=== PATIENT | male | born 1935 | race Two or more races ===

== ENCOUNTER 2019-02-21 17:36 | Inpatient (IN) | payer OTHER ==
[~2019-02-21] VITALS: Ht 180.3 cm; Wt 75.3 kg
--- NOTE | 2019-02-21 17:41 | Emergency Room Report ---
History of Present Illness General Chief Complaint: Abnormal Labs Source: Patient, EMS Present Illness HPI Patient is an 83-year-old male brought in by EMS after acute onset of altered mental status. Patient was noted to have been in a hot apartment. He was found to have low blood sugar by paramedics. Patient states he has type 2 diabetes but cannot recall what his medications are. He states that this is not metformin. He denies any current complaints.Patient denies any recent illness. Allergies: Coded Allergies: No Known Allergies (Unverified , 02/21/19) Patient History Past Medical History: see triage record Reviewed Nursing Documentation: PMH: Agreed; PSxH: Agreed Nursing Documentation-PMH Hx Hypertension: Yes Hx Diabetes: Yes Review of Systems All Other Systems: negative except mentioned in HPI Physical Exam Vital Signs Date Time Temp Pulse Resp B/P (MAP) Pulse Ox O2 Delivery O2 Flow Rate FiO2 02/21/19 17:37 98.4 72 19 172/84 (113) 99 Sp02 EP Interpretation: reviewed, normal General Appearance: normal inspection, well appearing, no apparent distress, alert, GCS 15 Head: atraumatic ENT: normal ENT inspection, hearing grossly normal, normal voice Neck: normal inspection, full range of motion, supple, no bony tend Respiratory: normal inspection, lungs clear, normal breath sounds, no respiratory distress, no retraction, no wheezing Cardiovascular #1: regular rate, rhythm, no edema, other - palpable thrill to left upper extremity dialysis site Gastrointestinal: normal inspection, normal bowel sounds, non tender, soft, no guarding, no hernia Genitourinary: no CVA tenderness Musculoskeletal: normal inspection, back normal, normal range of motion, other Neurologic: normal inspection, alert, oriented x3, responsive, last turner III-XII nml as tested, speech normal Psychiatric: normal inspection, judgement/insight normal, mood/affect normal Medical Decision Making Diagnostic Impression: Primary Impression: Hypoglycemia Additional Impressions: Acute on chronic renal failure Acute metabolic encephalopathy ER Course Patient presented for altered mental status. Differential diagnosis included but was not limited to hypoglycemic episode, uremia, dehydration, medication overdose, sepsis among others. Patient was noted to be at baseline mental status. He was noted to have some baseline kidney disease. Left forearm dialysis access was noted to have a palpable thrill. He was able to make urine. Patient was noted to have some baseline renal disease however creatinine is on known by the patient. Dr. Alarcon was contacted for inpatient management due to panel physician. Labs Test 02/21/19 17:40 White Blood Count 4.6 K/UL (4.8-10.8) Red Blood Count 4.18 M/UL (4.70-6.10) Hemoglobin 11.5 G/DL (14.2-18.0) Hematocrit 37.1 % (42.0-52.0) Mean Corpuscular Volume 89 FL (80-99) Mean Corpuscular Hemoglobin 27.7 PG (27.0-31.0) Mean Corpuscular Hemoglobin Concent 31.2 G/DL (32.0-36.0) Red Cell Distribution Width 16.1 % (11.6-14.8) Platelet Count 248 K/UL (150-450) Mean Platelet Volume 6.2 FL (6.5-10.1) Neutrophils (%) (Auto) 68.2 % (45.0-75.0) Lymphocytes (%) (Auto) 21.7 % (20.0-45.0) Monocytes (%) (Auto) 6.4 % (1.0-10.0) Eosinophils (%) (Auto) 2.0 % (0.0-3.0) Basophils (%) (Auto) 1.7 % (0.0-2.0) Urine Color Pale yellow Urine Appearance Clear Urine pH 7 (4.5-8.0) Urine Specific [place] 1.005 (1.005-1.035) Urine Protein 3+ (NEGATIVE) Urine Glucose (UA) Negative (NEGATIVE) Urine Ketones Negative (NEGATIVE) Urine Blood 2+ (NEGATIVE) Urine Nitrite Negative (NEGATIVE) Urine Bilirubin Negative (NEGATIVE) Urine Urobilinogen Normal MG/DL (0.0-1.0) Urine Leukocyte Esterase Negative (NEGATIVE) Urine RBC 2-4 /HPF (0 - 0) Urine WBC 0-2 /HPF (0 - 0) Urine Squamous Epithelial Cells None /LPF (NONE/OCC) Urine Bacteria Few /HPF (NONE) Sodium Level 138 MMOL/L (136-145) Potassium Level 5.1 MMOL/L (3.5-5.1) Chloride Level 103 MMOL/L (98-107) Carbon Dioxide Level 20 MMOL/L (21-32) Anion Gap 15 mmol/L (5-15) Blood Urea Nitrogen 103 mg/dL (7-18) Creatinine 7.7 MG/DL (0.55-1.30) Estimat Glomerular Filtration Rate mL/min (>60) Glucose Level 121 MG/DL (74-106) Calcium Level 7.3 MG/DL (8.5-10.1) Total Bilirubin 0.3 MG/DL (0.2-1.0) Aspartate Amino Transf (AST/SGOT) 20 U/L (15-37) Alanine Aminotransferase (ALT/SGPT) 14 U/L (12-78) Alkaline Phosphatase 112 U/L (46-116) Total Protein 8.6 G/DL (6.4-8.2) Albumin 4.0 G/DL (3.4-5.0) Globulin 4.6 g/dL Albumin/Globulin Ratio 0.9 (1.0-2.7) EKG Diagnostic Results Rate: normal - 65 Rhythm: NSR ST Segments: no acute changes Last Vital Signs Date Time Temp Pulse Resp B/P (MAP) Pulse Ox O2 Delivery O2 Flow Rate FiO2 02/21/19 17:37 98.4 72 19 172/84 (113) 99 Status: improved Disposition: ADMITTED INPATIENT Condition: Serious Bryan Elizalde MD Feb 21, 2019 17:41
[2019-02-21 17:52] VITALS: BP 181/77
--- NOTE | 2019-02-21 17:54 | NUR ---
ED Nurse Note:pt. was BIBA from home due to hypoglycemia and hypertension, he was given D10 by paramedics BS on arrival 108, VSS, blood and urine sent to labs
[2019-02-21 18:00] LABS: APPEARANCE,URINE CLEAR; BILIRUBIN, URINE NEGATIVE (NEGATIVE); COLOR,URINE PALE YELLOW; GLUCOSE, URINE (UA) NEGATIVE (NEGATIVE); KETONES,URINE NEGATIVE (NEGATIVE); LEUKOCYTE ESTERASE ,URINE NEGATIVE (NEGATIVE); NITRITE,URINE NEGATIVE (NEGATIVE); PH,URINE 7 (4.5-8.0); PROTEIN,URINE 3+ (NEGATIVE); UROBILINOGEN,URINE NORMAL MG/DL (0.0-1.0)
[2019-02-21 18:06] LABS: ANION GAP 15 mmol/L (5-15); BASOPHILS % (AUTO) 1.7 % (0.0-2.0); BLOOD UREA NITROGEN 103 mg/dL (7-18); CALCIUM 7.3 MG/DL (8.5-10.1); CARBON DIOXIDE 20 MMOL/L (21-32); CHLORIDE 103 MMOL/L (98-107); CREATININE 7.7 MG/DL (0.55-1.30); HEMATOCRIT 37.1 % (42.0-52.0); HEMOGLOBIN 11.5 G/DL (14.2-18.0); LYMPHOCYTES % (AUTO) 21.7 % (20.0-45.0); MEAN CORPUSCULAR VOLUME 89 FL (80-99); MONOCYTES % (AUTO) 6.4 % (1.0-10.0); NEUTROPHILS % (AUTO) 68.2 % (45.0-75.0); PLATELET COUNT 248 K/UL (150-450); POTASSIUM 5.1 MMOL/L (3.5-5.1); RED BLOOD COUNT 4.18 M/UL (4.70-6.10); RED CELL DISTRIBUTION WIDTH 16.1 % (11.6-14.8); SODIUM 138 MMOL/L (136-145); WHITE BLOOD COUNT 4.6 K/UL (4.8-10.8)
[2019-02-21 18:11] LABS: ALANINE AMINOTRANSFERASE 14 U/L (12-78); ALBUMIN/GLOBULIN RATIO 0.9 (1.0-2.7); ALKALINE PHOSPHATASE 112 U/L (46-116); ASPARTATE AMINO TRANSFERASE 20 U/L (15-37); BILIRUBIN,TOTAL 0.3 MG/DL (0.2-1.0)
--- NOTE | 2019-02-21 18:47 | NUR ---
ED Nurse Note:pt. has dialysis fistula on left forearm
[2019-02-21] MEDS ORDERED: CALCIUM ACETAT667 M1 PO (18:56)
[2019-02-21] MEDS ORDERED: ADALAT20 MG ORAL (18:56)
[2019-02-21] MEDS ORDERED: GLIPIZIDE5 MG ORAL (18:56)
[2019-02-21] MEDS ORDERED: ASPIRIN81 MG ORAL (18:56)
[2019-02-21] MEDS ORDERED: FERROUS SULFAT325 MG ORAL (18:56)
[2019-02-21] MEDS ORDERED: ATORVASTATIN CA80 MG ORAL (18:56)
[2019-02-21] MEDS ORDERED: SODIUM BICARBO650 MG PO (18:56)
[2019-02-21] MEDS ORDERED: RENVELA0.8 GM ORAL (18:56)
[2019-02-21] MEDS ORDERED: FUROSEMIDE80 M1 ORAL (18:56)
[2019-02-21] MEDS ORDERED: FLOMAX0.4 MG ORAL (18:56)
--- NOTE | 2019-02-21 19:03 | NUR ---
HAND-OFF: Report given to Susana.
--- NOTE | 2019-02-21 19:05 | NUR ---
ED Nurse Note: report received from PAMELA Hernandez. PT is in bed. family member by bedside. no acute distress noted.
[2019-02-21 19:38] VITALS: BP 165/85
--- NOTE | 2019-02-21 19:58 | NUR ---
ER DISCHARGE NOTE: Pt brought up to SDU room 245 via gurney in stable condition accompanied by RN and electrical engineering technician. Report given to PAMELA Adorno/ Zuleika Fair RN. belonging list signed.
[2019-02-21 20:00] VITALS: BP 164/89
--- NOTE | 2019-02-21 20:00 | NUR ---
NURSE NOTES: received pt from ADOLFO Meza RN., placed caser shoe parts on pt, changed with clean linens, applied yellow gown with yellow non-skid socks. pt is stable no SOB noted. pt's families are at the bed side. pt states no pain at this moment. bed at the lowest position and locked. call light within reach. will keep continue with plan of care.
[2019-02-21] MEDS ORDERED: LORazepam Inj 2mg/ml 1ml IV PRN (21:15)
[2019-02-21] MEDS ORDERED: Zolpidem 5mg tab ORAL PRN (21:15)
[2019-02-21] MEDS ORDERED: Morphine Sulfate 2mg/ml Inj(IV/IM USE ONLY) IVP PRN (21:15)
[2019-02-21] MEDS ORDERED: Miralax 17gm pkt ORAL PRN (21:15)
[2019-02-21 21:32] LABS: CREATINE KINASE 436 U/L (26-308)
[2019-02-22] VITALS: BP 174/75
--- NOTE | 2019-02-22 00:03 | NUR ---
NURSE NOTES: attempted to contact due to elevated BP 190/88 and rechecked BP 174/75 Hr117. waiting for call back from Dr. Estrella. pt stated lower right back pain 12/03, but pt refused to take any pain medication. will continue to monitor the pt.
--- NOTE | 2019-02-22 03:46 | NUR ---
NURSE NOTES: left emergency message to Dr. alarcon regarding pt's initial BP 204/98 and retook BP192/105, and rectal bleeding after BM. waiting for call back from Dr. Alarcon. will continue to monitor the Pt.
--- NOTE | 2019-02-22 03:50 | NUR ---
NURSE NOTES: aware of rectal bleeding and elevated BP. PRN order received and carried out.
[2019-02-22 04:00] VITALS: BP 192/105
[2019-02-22 05:25] LABS: BASOPHILS % (AUTO) 2.2 % (0.0-2.0); EOSINOPHILS % (AUTO) 1.8 % (0.0-3.0); HEMATOCRIT 37.3 % (42.0-52.0); HEMOGLOBIN 11.6 G/DL (14.2-18.0); LYMPHOCYTES % (AUTO) 20.9 % (20.0-45.0); MEAN CORPUSCULAR VOLUME 90 FL (80-99); MONOCYTES % (AUTO) 6.6 % (1.0-10.0); NEUTROPHILS % (AUTO) 68.5 % (45.0-75.0); PLATELET COUNT 255 K/UL (150-450); RED BLOOD COUNT 4.16 M/UL (4.70-6.10); RED CELL DISTRIBUTION WIDTH 16.1 % (11.6-14.8); WHITE BLOOD COUNT 4.4 K/UL (4.8-10.8)
[2019-02-22 05:40] LABS: APPEARANCE,URINE CLEAR; BILIRUBIN, URINE NEGATIVE (NEGATIVE); COLOR,URINE PALE YELLOW; GLUCOSE, URINE (UA) NEGATIVE (NEGATIVE); KETONES,URINE NEGATIVE (NEGATIVE); LEUKOCYTE ESTERASE ,URINE NEGATIVE (NEGATIVE); NITRITE,URINE NEGATIVE (NEGATIVE); PH,URINE 7 (4.5-8.0); PROTEIN,URINE 3+ (NEGATIVE); UROBILINOGEN,URINE NORMAL MG/DL (0.0-1.0)
[2019-02-22 05:48] LABS: ALANINE AMINOTRANSFERASE 16 U/L (12-78); ALBUMIN 4.1 G/DL (3.4-5.0); ALBUMIN/GLOBULIN RATIO 0.9 (1.0-2.7); ALKALINE PHOSPHATASE 111 U/L (46-116); ANION GAP 21 mmol/L (5-15); ASPARTATE AMINO TRANSFERASE 23 U/L (15-37); BILIRUBIN,TOTAL 0.3 MG/DL (0.2-1.0); BLOOD UREA NITROGEN 102 mg/dL (7-18); CALCIUM 7.2 MG/DL (8.5-10.1); CARBON DIOXIDE 17 MMOL/L (21-32); CHLORIDE 104 MMOL/L (98-107); CHOLESTEROL 184 MG/DL (< 200); CREATININE 7.6 MG/DL (0.55-1.30); HDL CHOLESTEROL 95 MG/DL (40-60); POTASSIUM 5.6 MMOL/L (3.5-5.1); SODIUM 142 MMOL/L (136-145); TRIGLYCERIDES 62 MG/DL (30-150)
[2019-02-22] MEDS ORDERED: NovoLOG Insulin Flexpen SUBQ SCH (06:30)
--- NOTE | 2019-02-22 06:45 | NUR ---
NURSE NOTES: Dr. Estrella aware of potassium 5.6 and ordered with kayeslate 30gm po X once
--- NOTE | 2019-02-22 07:37 | NUR ---
HAND-OFF: Report given to Joan SANTIAGO.
--- NOTE | 2019-02-22 07:40 | NUR ---
NURSE NOTES: Report received from Kinza RN/Tila RN.Pt resting in bed awake,alert follows command,in no resp distress,denies any discomfort or chest pain,SR ist deg HB,IV site to Rt Wrist intact and with a HD access to lt lower arm,skin warm and dry,SR up x2 HOBelevated,bed lock in lowest position,will continue with plans of care.
[2019-02-22 08:00] VITALS: BP 150/70
[2019-02-22] MEDS ORDERED: Sodium Polystyrene Sulfonate 15gm Powder ORAL SCH (08:00)
[2019-02-22] MEDS: Heparin 5000 units/ml inj SUBQ SCH ×2 (08:40→20:15)
[2019-02-22] MEDS ORDERED: Sodium Bicarbonate 650mg Tab ORAL SCH (09:00)
[2019-02-22] MEDS ORDERED: Tamsulosin 0.4mg cap ORAL SCH (09:00)
--- NOTE | 2019-02-22 10:00 | NUR ---
NURSE NOTES: Dr Bonds at bedside seen and assessed pt,asked the HD RN to check on pt's AV shunt to Lt Lower arm.per statement of HD Nurse,pt's shunt cant be be used yet,will need a Hemodialysis catheter.HD RN informed Dr Bonds about need for HD catheter.Pt refused insertion of a Hemodialysis catheter .
--- NOTE | 2019-02-22 11:30 | NUR ---
NURSE NOTES: PT wanted to go home,Dr Estrella discussed with pt the risk of pt's going home but pt wont listen.Dr Estrella said to let pt sign AMA but pt refusing to sign.
--- NOTE | 2019-02-22 11:39 | Consultation ---
Consult Note Consult Note asked to eval at the request of Dr Alarcon Patient is an 83-year-old male brought in by EMS after acute onset of altered mental status. Patient was noted to have been in a hot apartment. He was found to have low blood sugar by paramedics. Patient states he has type 2 diabetes but cannot recall what his medications are. He states that this is not metformin. He denies any current complaints.Patient denies any recent illness. Allergies: Coded Allergies: No Known Allergies (Unverified , 02/21/19) Hx Hypertension: Yes Hx Diabetes: Yes [facility] was told to have kidney problem 3 months ago had fistula surgery on left wrist for dialysis access- o/e its not mature to be used data reviewed . Assessment/Plan ESRD Superimposed dehydration h/o HTN h/o DM h/o Prostate problems patient declines dialysis at this time- slow hydrate Renal diet 2D echo per orders Manuel Bonds MD Feb 22, 2019 11:39
--- NOTE | 2019-02-22 11:54 | Consultation ---
History of Present Illness General Date patient seen: Feb 22, 2019 Chief Complaint: Abnormal Labs Present Illness HPI 83-year-old male with hx of HTN, DM, chronic renal insufficiency, pending dialysis, brought in by EMS after acute onset of altered mental status. He was found to have low blood sugar by paramedics. His BP was elevated on presentation to ER. He is admitted to [facility] for further management. Allergies: Coded Allergies: No Known Allergies (Unverified , 02/21/19) Medication History Scheduled Aspirin* (Aspirin*), 81 MG ORAL DAILY, (Reported) Atorvastatin Calcium* (Lipitor*), 80 MG ORAL BEDTIME, (Reported) Ferrous Sulfate* (Ferrous Sulfate*), 325 MG ORAL DAILY, (Reported) Furosemide* (Lasix*), 80 MG ORAL DAILY, (Reported) Glipizide* (Glipizide*), 10 MG ORAL BIDAC, (Reported) Nifedipine (Nifedipine*), 90 MG ORAL EVERY 12 HOURS, (Reported) Sevelamer Carbonate* (Renvela*), 800 MG ORAL THREE TIMES A DAY, (Reported) Sodium Bicarbonate* (Nahco3*), 650 MG PO TID, (Reported) Tamsulosin HCl (Flomax), 0.4 MG ORAL DAILY, (Reported) Miscellaneous Medications Calcium Acetate (Calcium Acetate), 667 MG PO, (Reported) Patient History Healthcare decision maker N Resuscitation status Full Code Advanced Directive on File Past Medical/Surgical History Past Medical/Surgical History: (1) Chronic renal failure (2) Diabetes mellitus (3) HTN (hypertension) Review of Systems All Other Systems: negative except mentioned in HPI Physical Exam General Appearance: WD/WN, no apparent distress Lines, tubes and drains: peripheral HEENT: normocephalic, atraumatic Neck: non-tender Respiratory/Chest: chest wall non-tender, lungs clear Breasts: no masses Cardiovascular/Chest: normal peripheral pulses, regularly irregular, no JVD Abdomen: hyperactive bowel sounds Genitourinary/Rectal: normal rectal exam Extremities: normal range of motion Skin Exam: normal pigmentation Last 24 Hour Vital Signs Date Time Temp Pulse Resp B/P (MAP) Pulse Ox O2 Delivery O2 Flow Rate FiO2 02/22/19 08:35 69 171/79 02/22/19 08:00 Room Air 02/22/19 08:00 97.7 63 18 150/70 (96) 99 02/22/19 07:44 61 02/22/19 06:18 171/79 02/22/19 04:08 69 192/105 02/22/19 04:00 97.2 69 17 192/105 (134) 99 02/22/19 04:00 Room Air 02/22/19 04:00 80 02/22/19 00:00 Room Air 02/22/19 00:00 98.1 117 15 174/75 (108) 100 02/21/19 23:56 72 02/21/19 20:00 97.7 74 20 164/89 (114) 100 02/21/19 20:00 Room Air 02/21/19 19:58 98.4 68 16 168/85 100 Room Air 02/21/19 19:38 98.4 71 16 165/85 99 02/21/19 17:52 98.4 67 16 181/77 99 02/21/19 17:37 98.4 72 19 172/84 (113) 99 Intake and Output 02/21/19 02/22/19 18:59 06:59 Intake Total 250 ml Output Total 400 ml Balance -150 ml Intake Oral 250 ml Output Urine Total 400 ml # Voids 1 4 # Bowel Movements 2 Laboratory Tests Test 02/21/19 17:40 02/22/19 02:15 02/22/19 05:00 White Blood Count 4.6 K/UL (4.8-10.8) L 4.4 K/UL (4.8-10.8) L Red Blood Count 4.18 M/UL (4.70-6.10) L 4.16 M/UL (4.70-6.10) L Hemoglobin 11.5 G/DL (14.2-18.0) L 11.6 G/DL (14.2-18.0) L Hematocrit 37.1 % (42.0-52.0) L 37.3 % (42.0-52.0) L Mean Corpuscular Volume 89 FL (80-99) 90 FL (80-99) Mean Corpuscular Hemoglobin 27.7 PG (27.0-31.0) 27.8 PG (27.0-31.0) Mean Corpuscular Hemoglobin Concent 31.2 G/DL (32.0-36.0) L 31.0 G/DL (32.0-36.0) L Red Cell Distribution Width 16.1 % (11.6-14.8) H 16.1 % (11.6-14.8) H Platelet Count 248 K/UL (150-450) 255 K/UL (150-450) Mean Platelet Volume 6.2 FL (6.5-10.1) L 6.6 FL (6.5-10.1) Neutrophils (%) (Auto) 68.2 % (45.0-75.0) 68.5 % (45.0-75.0) Lymphocytes (%) (Auto) 21.7 % (20.0-45.0) 20.9 % (20.0-45.0) Monocytes (%) (Auto) 6.4 % (1.0-10.0) 6.6 % (1.0-10.0) Eosinophils (%) (Auto) 2.0 % (0.0-3.0) 1.8 % (0.0-3.0) Basophils (%) (Auto) 1.7 % (0.0-2.0) 2.2 % (0.0-2.0) H Urine Color Pale yellow Pale yellow Urine Appearance Clear Clear Urine pH 7 (4.5-8.0) 7 (4.5-8.0) Urine Specific [place] 1.005 (1.005-1.035) 1.005 (1.005-1.035) Urine Protein 3+ (NEGATIVE) H 3+ (NEGATIVE) H Urine Glucose (UA) Negative (NEGATIVE) Negative (NEGATIVE) Urine Ketones Negative (NEGATIVE) Negative (NEGATIVE) Urine Blood 2+ (NEGATIVE) H 2+ (NEGATIVE) H Urine Nitrite Negative (NEGATIVE) Negative (NEGATIVE) Urine Bilirubin Negative (NEGATIVE) Negative (NEGATIVE) Urine Urobilinogen Normal MG/DL (0.0-1.0) Normal MG/DL (0.0-1.0) Urine Leukocyte Esterase Negative (NEGATIVE) Negative (NEGATIVE) Urine RBC 2-4 /HPF (0 - 0) H 2-4 /HPF (0 - 0) H Urine WBC 0-2 /HPF (0 - 0) 0 /HPF (0 - 0) Urine Squamous Epithelial Cells None /LPF (NONE/OCC) None /LPF (NONE/OCC) Urine Bacteria Few /HPF (NONE) Few /HPF (NONE) Sodium Level 138 MMOL/L (136-145) 142 MMOL/L (136-145) Potassium Level 5.1 MMOL/L (3.5-5.1) 5.6 MMOL/L (3.5-5.1) H Chloride Level 103 MMOL/L (98-107) 104 MMOL/L (98-107) Carbon Dioxide Level 20 MMOL/L (21-32) L 17 MMOL/L (21-32) L Anion Gap 15 mmol/L (5-15) 21 mmol/L (5-15) H Blood Urea Nitrogen 103 mg/dL (7-18) H 102 mg/dL (7-18) H Creatinine 7.7 MG/DL (0.55-1.30) H 7.6 MG/DL (0.55-1.30) H Estimat Glomerular Filtration Rate mL/min (>60) mL/min (>60) Glucose Level 121 MG/DL (74-106) H 112 MG/DL (74-106) H Uric Acid 6.0 MG/DL (2.6-7.2) Calcium Level 7.3 MG/DL (8.5-10.1) L 7.2 MG/DL (8.5-10.1) L Total Bilirubin 0.3 MG/DL (0.2-1.0) 0.3 MG/DL (0.2-1.0) Aspartate Amino Transf (AST/SGOT) 20 U/L (15-37) 23 U/L (15-37) Alanine Aminotransferase (ALT/SGPT) 14 U/L (12-78) 16 U/L (12-78) Alkaline Phosphatase 112 U/L (46-116) 111 U/L (46-116) Total Creatine Kinase 436 U/L (26-308) H Pending Total Protein 8.6 G/DL (6.4-8.2) H 8.7 G/DL (6.4-8.2) H Albumin 4.0 G/DL (3.4-5.0) 4.1 G/DL (3.4-5.0) Globulin 4.6 g/dL 4.6 g/dL Albumin/Globulin Ratio 0.9 (1.0-2.7) L 0.9 (1.0-2.7) L Urine Eosinophils None seen (NONE SEEN) Urine Osmolality 334 mOsm/kg (429-449) L Urine Random Creatinine Pending Urine Random Microalbumin Pending Urine Random Sodium 104 mmol/L (20-110) Urine Microalbumin/Creatinine Ratio Pending Hemoglobin A1c Pending Phosphorus Level Pending Magnesium Level Pending Triglycerides Level 62 MG/DL (30-150) Cholesterol Level 184 MG/DL (< 200) LDL Cholesterol 73 mg/dL (<100) HDL Cholesterol 95 MG/DL (40-60) H Cholesterol/HDL Ratio 1.9 (3.3-4.4) L Thyroid Stimulating Hormone (TSH) Pending Height (Feet): 5 Height (Inches): 11.00 Weight (Pounds): 166 Medications Current Medications Medications (Trade) Dose Ordered Sig/Rand Route PRN Reason Start Time Stop Time Status Last Admin Dose Admin Acetaminophen (Tylenol) 650 mg Q4H PRN ORAL fever (temp>100.5F) 02/21/19 21:15 03/23/19 21:14 Amlodipine Besylate (Norvasc) 5 mg DAILY ORAL 02/23/19 09:00 03/24/19 08:59 UNV Aspirin (ASA) 81 mg DAILY ORAL 02/22/19 11:45 03/24/19 11:44 UNV Clonidine HCl (Catapres Tab) 0.1 mg Q4H PRN ORAL For High Blood Pressure 02/22/19 04:00 03/24/19 03:59 02/22/19 06:18 Dextrose (Dextrose 50%) 25 ml Q30M PRN IV Hypoglycemia 02/21/19 21:15 03/23/19 21:14 Dextrose (Dextrose 50%) 50 ml Q30M PRN IV Hypoglycemia 02/21/19 21:15 03/23/19 21:14 Dextrose/Sodium Chloride 1,000 ml @ 50 mls/hr Q20H IV 02/22/19 11:45 03/24/19 11:44 UNV Docusate Sodium (Colace) 100 mg THREE TIMES A DAY ORAL 02/22/19 13:00 03/24/19 12:59 UNV Heparin Sodium (Porcine) (Heparin 5000 units/ml) 5,000 units EVERY 12 HOURS SUBQ 02/22/19 09:00 03/24/19 08:59 02/22/19 08:40 Lorazepam (Ativan 2mg/ml 1ml) 0.5 mg Q4H PRN IV For Anxiety 02/21/19 21:15 02/28/19 21:14 Morphine Sulfate (Morphine Sulfate) 1 mg Q4H PRN IVP For Pain 02/21/19 21:15 02/28/19 21:14 Ondansetron HCl (Zofran) 4 mg Q6H PRN IVP Nausea & Vomiting 02/21/19 21:15 03/23/19 21:14 Pantoprazole (Protonix) 40 mg EVERY 12 HOURS ORAL 02/22/19 21:00 03/24/19 20:59 UNV Polyethylene Glycol (Miralax) 17 gm HSPRN PRN ORAL Constipation 02/21/19 21:15 03/23/19 21:14 Sevelamer Carbonate (Renvela) 800 mg THREE TIMES A DAY ORAL 02/22/19 09:00 03/24/19 08:59 02/22/19 08:35 Tamsulosin HCl (Flomax) 0.4 mg BID ORAL 02/22/19 18:00 03/24/19 08:59 UNV Zolpidem Tartrate (Ambien) 5 mg HSPRN PRN ORAL Insomnia 02/21/19 21:15 02/28/19 21:14 Assessment/Plan Problem List: (1) Acute metabolic encephalopathy ICD Codes: G93.41 - Metabolic encephalopathy SNOMED: 35216097, 084522843 (2) Acute on chronic renal failure ICD Codes: N17.9 - Acute kidney failure, unspecified; N18.9 - Chronic kidney disease, unspecified SNOMED: 091801197 (3) Hypoglycemia ICD Codes: E16.2 - Hypoglycemia, unspecified SNOMED: 208690084 (4) Chronic renal failure ICD Codes: N18.9 - Chronic kidney disease, unspecified SNOMED: 93963638 (5) Diabetes mellitus ICD Codes: E11.9 - Type 2 diabetes mellitus without complications SNOMED: 71459063 (6) HTN (hypertension) ICD Codes: I10 - Essential (primary) hypertension SNOMED: 00955062 Assessment/Plan: IV fluids HD now, if pt agrees monitor BP sliding scale renal diet check electrolytes Jordin Estrella MD Feb 22, 2019 11:54
[2019-02-22 11:56] LABS: PHOSPHORUS 5.5 MG/DL (2.5-4.9)
[2019-02-22 11:58] LABS: CREATINE KINASE 467 U/L (26-308)
[2019-02-22 12:00] VITALS: BP 133/72
--- NOTE | 2019-02-22 12:11 | NUR ---
NURSE NOTES: Pt's family member balbir at bedside,discussed with Dr Whitaker re request for transfer to [facility],Dr whitaker referred pt to Edilma ,Transplant Surgeon.
--- NOTE | 2019-02-22 12:50 | NUR ---
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 98.5 HR 72 RR 19 B/P 172/84 WBC 4.6 BUN 103 CR 7.7 IS: ZOFRAN IV ATIVAN ADMITTED TO STEP DOWN STEP DOWN STATUS DCP RETURN HOME
[2019-02-22] MEDS: D5 1/2NS 1,000 ML IV SCH (13:47)
[2019-02-22] MEDS: Aspirin Baby 81mg ORAL SCH (13:48)
[2019-02-22] MEDS: Docusate 100mg cap ORAL SCH ×2 (13:48→17:20)
--- NOTE | 2019-02-22 14:12 | Diagnostic Imaging Report ---
Indication:Elevated Bun and Creatinine. Technique: Grayscale and duplex Doppler imaging of the kidneys performed. Comparison: None Findings: Kidneys are normal in size but demonstrate increased cortical echogenicity. There is no hydronephrosis. Multiple small bilateral renal cysts are present. Bilateral echogenic foci consistent with nonobstructive stones demonstrated.. The right kidney measures 9.5 cm. in length. The left kidney measures 9.7 cm. in length. The IVC is patent. Urinary bladder is unremarkable. IMPRESSION: Medical renal disease. Bilateral renal cysts. Bilateral nonobstructive stones
--- NOTE | 2019-02-22 15:00 | NUR ---
NURSE NOTES: Dr Alarcon at bedside,discussed with family member re transfer to [facility] depending availability of bed.Case [place] assured family member that [facility] has a bed.
--- NOTE | 2019-02-22 15:25 | NUR ---
*-* INSURANCE *-* ALL CLINICALS AND REVIEWS HAVE BEEN FAXED TO: [facility] ADMISSION REPORTED TO [facility] @ [phone] COLLIN# [id number] / PENDING [facility]: [place] P- [phone] - [facility] DEPT F- [phone]..............REVIEW/CLINICAL
--- NOTE | 2019-02-22 15:49 | NUR ---
CASE MANAGEMENT NOTES PATIENT CLINICALS INFORMATION HAS BE[facility] TO [facility] FOR [facility]SF[facility]: [facility] F: [phone]
[2019-02-22 16:00] VITALS: BP 125/71
--- NOTE | 2019-02-22 16:04 | History & Physical ---
History and Physical History & Physicial Oscar Alarcon MD Feb 22, 2019 16:04
--- NOTE | 2019-02-22 16:09 | Cardiology Report ---
APPROVED REPORT EXAM: Two-dimensional and M-mode echocardiogram with Doppler and color Doppler. INDICATION LEFT VENTRICULAR FUNCTION M-Mode DIMENSIONS IVSd1.2 (0.7-1.1cm)Left Atrium (MM)3.5 (1.6-4.0cm) LVDd4.7 (3.5-5.6cm)Aortic Root3.2 (2.0-3.7cm) PWd1.1 (0.7-1.1cm)Aortic Cusp Exc.1.9 (1.5-2.0cm) LVDs4.0 (2.5-4.0cm) PWs1.4 cm Normal left ventricular chamber size, systolic function and wall motion. Left ventricular ejection fraction estimated to be 65 %. Mild left ventricular hypertrophy. No evidence of pericardial effusion. All other cardiac chamber sizes are within normal limits. Focal aortic valve sclerosis with adequate cusp excursion. Thickened mitral valve leaflets with normal excursion. Pulmonic valve not well visualized. Normal tricuspid valve structure. IVC at normal size with physiologic collapse. A color flow and spectral Doppler study was performed and revealed: No aortic regurgitation. Trace mitral regurgitation. Mitral diastolic velocities suggest mild left ventricular diastolic dysfunction (Grade I). Trace tricuspid regurgitation. Tricuspid systolic velocities suggests peak right ventricular systolic pressure of 9 mmHg. No pulmonic regurgitation.
--- NOTE | 2019-02-22 16:37 | Cardiology Report ---
APPROVED REPORT EKG Measurement Heart [id number] AL [id number] [id number] Normal sinus rhythm Nonspecific T wave abnormality Abnormal ECG
[2019-02-22] MEDS: Tamsulosin 0.4mg cap ORAL SCH (17:20)
--- NOTE | 2019-02-22 18:15 | History and Physical Report ---
DATE OF ADMISSION: 02/21/2019 CHIEF COMPLAINT: Altered mental status. 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 The patient was noted to have blood glucose level of 40 and was noted elevated blood pressure and subsequently the patient was admitted to the hospital with altered mental status, most likely secondary to hypoglycemia as well as acute kidney injury on chronic renal insufficiency with elevated high blood pressure. PAST MEDICAL HISTORY AND PAST SURGICAL HISTORY: As above. History of hypertension, dyslipidemia, diabetes type 2, history of chronic kidney disease stage 4 to 5, status post left arm AV fistula placement. MEDICATIONS: At home significant for aspirin, atorvastatin, iron sulfate, furosemide, glipizide, nifedipine, Renvela, sodium bicarb, Flomax. ALLERGIES: No known drug allergies. SOCIAL HISTORY: Socially drinks. No substance abuse. Lives with the family member. Has a daughter who is at the bedside giving history. FAMILY HISTORY: Noncontributory. REVIEW OF SYSTEMS: Mostly as above. Denies any dysuria, frequency, or hematuria. Denies any hemoptysis or hematochezia. Denies any bright red blood per rectum. PHYSICAL EXAMINATION: VITAL SIGNS: On admission, temperature 98.4, pulse of 72, respirations 18, blood pressure 172/84, repeat one is 150/70. GENERAL: The patient is awake, responsive. No acute distress. HEAD AND NECK: Pupils are equal and reactive to light. Extraocular movements intact. Neck was supple. No JVD. LUNGS: Clear. No wheeze or rales. HEART: S1, S2. Distant heart sounds. No murmur or gallops. ABDOMEN: Soft, nondistended, nontender. Positive bowel sounds. EXTREMITIES: No cyanosis or clubbing. +2 ankle edema NEUROLOGIC: Cranial nerves II through XII grossly intact. Motor is 5/5 in all extremities. Gait is intact. RECTAL: Refused and deferred. GENITOURINARY: Refused and deferred. PSYCHIATRIC: Mood and affect is intact. LABORATORY DATA: On admission WBC of 4.6, hemoglobin 11, hematocrit 37, platelet is 248. Sodium 138, potassium 5.1, chloride 103, bicarbonate 20, BUN 103, creatinine 7.7, glucose is 121, calcium is 7.3. AST of 20, ALT of 14, alkaline phosphatase 112. The patient's hemoglobin A1c 6.3. Total CK of 436. TSH is 4.388. Urinalysis, +2 blood, +3 protein. No eosinophils were noted. Renal ultrasound showed that the patient has a medical renal disease with bilateral renal cysts, bilateral nonobstructive stone. ASSESSMENT: 1. Altered mental status, most likely secondary to the toxic metabolic encephalopathy as a result of hypoglycemia. 2. Acute kidney injury and chronic renal insufficiency stage 4 to 5. 3. Hyperglycemia. 4. Diabetes type 2, uncontrolled. 5. Hypertension. 6. Dyslipidemia. 7. Bilateral renal calculi. PLAN: 1. Admit the patient to the patient to [facility]. 2. We will monitor blood glucose level closely. 3. Follow up with the Nephrology consultation with Dr. Bonds. 4. Code status is Full Code. 5. Resume home medications. Hold off on diabetes medication. 6. Gentle IV hydration. 7. Discussed with the family member who is enquiring to transfer the patient to [facility] where the patient's regular doctors are. We will try to transfer the patient once the bed available. Contacted transfer center. 8. DVT prophylaxis. Heparin subcutaneous. Ocsar Alarcon M.D. DR: HUA JOB#: [id number] CC:
--- NOTE | 2019-02-22 19:00 | NUR ---
NURSE NOTES:HAND-OFF: Report given to Kim Van RN.Pt sitting up on side of bed no c/o presented,stable.
--- NOTE | 2019-02-22 19:10 | NUR ---
NURSE NOTES: Received bedside report from PAMELA Lange.Patient stable,in a bed,A&Ox 4,forgetfull,SR on monitoring coordinator,tolerated r/air well,diminished lung sounds bilateral on auscultation,BS active in all quadrants,accu check ACHS no coverage,IV asymptomatic intact on R wrist 18 G running with D 5 1/2 NS @ 50ml/hr,bed secured,call light within a reach,pt ambulatory stable,will continue to monitor and follow POC.
[2019-02-22 20:00] VITALS: BP 161/86
[2019-02-23] VITALS: BP 148/76
[2019-02-23 04:00] VITALS: BP 96/68
--- NOTE | 2019-02-23 06:59 | Pulmonology Progress Note ---
Assessment/Plan Problems: (1) Acute metabolic encephalopathy (2) Acute on chronic renal failure (3) Hypoglycemia (4) Chronic renal failure (5) Diabetes mellitus (6) HTN (hypertension) Assessment/Plan feeling better continue iv fluids check electrolytes ( still pending) sliding scale monitor BP Subjective ROS Limited/Unobtainable: No Constitutional: Reports: no symptoms HEENT: Repors: no symptoms Respiratory: Reports: no symptoms Allergies: Coded Allergies: No Known Allergies (Unverified , 02/21/19) Objective Last 24 Hour Vital Signs Date Time Temp Pulse Resp B/P (MAP) Pulse Ox O2 Delivery O2 Flow Rate FiO2 02/23/19 04:00 97.9 73 20 96/68 (77) 98 02/23/19 04:00 Room Air 02/23/19 03:52 65 02/23/19 00:00 97.5 63 18 148/76 (100) 98 02/23/19 00:00 Room Air 02/22/19 23:56 59 02/22/19 20:14 161/86 02/22/19 20:00 Room Air 02/22/19 20:00 97.4 61 16 161/86 (111) 98 02/22/19 19:57 63 02/22/19 16:00 Room Air 02/22/19 16:00 98.7 55 17 125/71 (89) 100 02/22/19 15:29 66 02/22/19 12:00 97.7 61 20 133/72 (92) 100 02/22/19 12:00 Room Air 02/22/19 12:00 96 02/22/19 08:35 69 171/79 02/22/19 08:00 Room Air 02/22/19 08:00 97.7 63 18 150/70 (96) 99 02/22/19 07:44 61 Intake and Output 02/22/19 02/23/19 19:00 07:00 Intake Total 1020 ml 790 ml Output Total 650 ml Balance 1020 ml 140 ml Intake Oral 720 ml 240 ml IV Total 300 ml 550 ml Output Urine Total 650 ml # Voids 4 # Bowel Movements 3 General Appearance: WD/WN HEENT: normocephalic, atraumatic Respiratory/Chest: chest wall non-tender, lungs clear Cardiovascular: normal peripheral pulses, normal rate Abdomen: soft, non tender, no organomegaly Genitourinary: normal external genitalia Extremities: no cyanosis Skin: no rash Neurologic/Psychiatric: curriculum coordinator II-XII grossly normal Microbiology Date/Time Source Procedure Growth Status 02/21/19 18:10 Blood Blood Culture - Preliminary NO GROWTH AFTER 24 HOURS Resulted 02/21/19 18:00 Blood Blood Culture - Preliminary NO GROWTH AFTER 24 HOURS Resulted Current Medications Medications (Trade) Dose Ordered Sig/Rand Route PRN Reason Start Time Stop Time Status Last Admin Dose Admin Acetaminophen (Tylenol) 650 mg Q4H PRN ORAL fever (temp>100.5F) 02/21/19 21:15 03/23/19 21:14 Amlodipine Besylate (Norvasc) 5 mg DAILY ORAL 02/23/19 09:00 03/24/19 08:59 Aspirin (ASA) 81 mg DAILY ORAL 02/22/19 11:45 03/24/19 11:44 02/22/19 13:48 Clonidine HCl (Catapres Tab) 0.1 mg Q4H PRN ORAL For High Blood Pressure 02/22/19 04:00 03/24/19 03:59 02/22/19 20:14 Dextrose (Dextrose 50%) 25 ml Q30M PRN IV Hypoglycemia 02/21/19 21:15 03/23/19 21:14 Dextrose (Dextrose 50%) 50 ml Q30M PRN IV Hypoglycemia 02/21/19 21:15 03/23/19 21:14 Dextrose/Sodium Chloride 1,000 ml @ 50 mls/hr Q20H IV 02/22/19 11:45 03/24/19 11:44 02/22/19 13:47 Docusate Sodium (Colace) 100 mg THREE TIMES A DAY ORAL 02/22/19 13:00 03/24/19 12:59 02/22/19 17:20 Heparin Sodium (Porcine) (Heparin 5000 units/ml) 5,000 units EVERY 12 HOURS SUBQ 02/22/19 09:00 03/24/19 08:59 02/22/19 20:15 Pantoprazole (Protonix) 40 mg EVERY 12 HOURS ORAL 02/22/19 21:00 03/24/19 20:59 02/22/19 20:13 Polyethylene Glycol (Miralax) 17 gm HSPRN PRN ORAL Constipation 02/21/19 21:15 9/28/19 21:14 Sevelamer Carbonate (Renvela) 800 mg THREE TIMES A DAY ORAL 02/22/19 09:00 03/24/19 08:59 02/22/19 17:20 Tamsulosin HCl (Flomax) 0.4 mg BID ORAL 02/22/19 18:00 03/24/19 08:59 02/22/19 17:20 Zolpidem Tartrate (Ambien) 5 mg HSPRN PRN ORAL Insomnia 02/21/19 21:15 02/28/19 21:14 Jordin Estrella MD Feb 23, 2019 06:59
--- NOTE | 2019-02-23 07:02 | NUR ---
HAND-OFF: Report given to PAMELA Alan.Patient stable,sleeping at this moment.
--- NOTE | 2019-02-23 07:05 | NUR ---
NURSE NOTES: Received bedside report from Kim SANTIAGO. Pt. in bed, awake, a/o x 3-4. No sign of distress. On R.A. Denies pain at present. IV at right wrist #[id number]. in placed patent/intact running D5 1/2 NS @ 50cc/hr. Tolerating well. Bed in low position, locked. Call light within reach. Will cont. to monitor.
[2019-02-23] MEDS: D5 1/2NS 1,000 ML IV SCH (07:51)
[2019-02-23 08:00] VITALS: BP 133/70
[2019-02-23 08:27] LABS: BASOPHILS % (AUTO) 2.2 % (0.0-2.0); EOSINOPHILS % (AUTO) 3.3 % (0.0-3.0); HEMATOCRIT 32.8 % (42.0-52.0); HEMOGLOBIN 10.3 G/DL (14.2-18.0); LYMPHOCYTES % (AUTO) 42.6 % (20.0-45.0); MEAN CORPUSCULAR VOLUME 90 FL (80-99); MONOCYTES % (AUTO) 8.5 % (1.0-10.0); NEUTROPHILS % (AUTO) 43.5 % (45.0-75.0); PLATELET COUNT 236 K/UL (150-450); RED BLOOD COUNT 3.65 M/UL (4.70-6.10); WHITE BLOOD COUNT 4.4 K/UL (4.8-10.8)
[2019-02-23 08:58] LABS: ALANINE AMINOTRANSFERASE 12 U/L (12-78); ALBUMIN 3.3 G/DL (3.4-5.0); ALBUMIN/GLOBULIN RATIO 0.9 (1.0-2.7); ALKALINE PHOSPHATASE 97 U/L (46-116); ANION GAP 14 mmol/L (5-15); ASPARTATE AMINO TRANSFERASE 18 U/L (15-37); BILIRUBIN,TOTAL 0.4 MG/DL (0.2-1.0); BLOOD UREA NITROGEN 98 mg/dL (7-18); CALCIUM 6.5 MG/DL (8.5-10.1); CARBON DIOXIDE 23 MMOL/L (21-32); CHLORIDE 104 MMOL/L (98-107); CREATININE 7.7 MG/DL (0.55-1.30); PHOSPHORUS 6.5 MG/DL (2.5-4.9); POTASSIUM 4.9 MMOL/L (3.5-5.1); SODIUM 140 MMOL/L (136-145)
[2019-02-23] MEDS: Heparin 5000 units/ml inj SUBQ SCH ×2 (09:00→21:38)
--- NOTE | 2019-02-23 09:07 | Nephrology Progress Note ---
Assessment/Plan Problem List: (1) Acute metabolic encephalopathy (2) Chronic renal failure Assessment: ESRD (3) HTN (hypertension) (4) Hypoglycemia (5) Diabetes mellitus Assessment ESRD Superimposed dehydration h/o HTN h/o DM h/o Prostate disease Plan todays full chemistries pending slow hydrate Renal diet 2D echo per orders [facility] If todays labs ( K and glucose..) Ok , patient can be discharged and [facility] second check: Lab reviewed IV mag increase po Renvela Subjective ROS Limited/Unobtainable: No Constitutional: Reports: other - alert oriented ambulating Objective Objective Last 24 Hour Vital Signs Date Time Temp Pulse Resp B/P (MAP) Pulse Ox O2 Delivery O2 Flow Rate FiO2 02/23/19 04:00 97.9 73 20 96/68 (77) 98 02/23/19 04:00 Room Air 02/23/19 03:52 65 02/23/19 00:00 97.5 63 18 148/76 (100) 98 02/23/19 00:00 Room Air 02/22/19 23:56 59 02/22/19 20:14 161/86 02/22/19 20:00 Room Air 02/22/19 20:00 97.4 61 16 161/86 (111) 98 02/22/19 19:57 63 02/22/19 16:00 Room Air 02/22/19 16:00 98.7 55 17 125/71 (89) 100 02/22/19 15:29 66 02/22/19 12:00 97.7 61 20 133/72 (92) 100 02/22/19 12:00 Room Air 02/22/19 12:00 96 Intake and Output 02/22/19 02/23/19 18:59 06:59 Intake Total 970 ml 840 ml Output Total 650 ml Balance 970 ml 190 ml Intake Oral 720 ml 240 ml IV Total 250 ml 600 ml Output Urine Total 650 ml # Voids 4 # Bowel Movements 3 Laboratory Tests 02/23/19 07:48: White Blood Count 4.4L, Red Blood Count 3.65L, Hemoglobin 10.3L, Hematocrit 32.8L, Mean Corpuscular Volume 90, Mean Corpuscular Hemoglobin 28.1, Mean Corpuscular Hemoglobin Concent 31.3L, Red Cell Distribution Width 16.0H, Platelet Count 236, Mean Platelet Volume 6.0L, Neutrophils (%) (Auto) 43.5L, Lymphocytes (%) (Auto) 42.6, Monocytes (%) (Auto) 8.5, Eosinophils (%) (Auto) 3.3H, Basophils (%) (Auto) 2.2H, Erythrocyte Sedimentation Rate [Pending], Sodium Level 140, Potassium Level 4.9, Chloride Level 104, Carbon Dioxide Level 23, Anion Gap 14, Blood Urea Nitrogen 98H, Creatinine 7.7H, Estimat Glomerular Filtration Rate , Glucose Level 120H, Calcium Level 6.5L, Phosphorus Level 6.5H , Magnesium Level 1.5L, Total Bilirubin 0.4, Aspartate Amino Transf (AST/SGOT) 18, Alanine Aminotransferase (ALT/SGPT) 12, Alkaline Phosphatase 97, C-Reactive Protein, Quantitative [Pending], Total Protein 7.1, Albumin 3.3L, Globulin 3.8, Albumin/Globulin Ratio 0.9L Height (Feet): 5 Height (Inches): 11.00 Weight (Pounds): 166 General Appearance: no apparent distress Cardiovascular: regular rhythm Respiratory/Chest: lungs clear Abdomen: soft Manuel Bonds MD Feb 23, 2019 09:07
[2019-02-23] MEDS ORDERED: D5 1/2NS 1000ml IV ONE (09:16)
[2019-02-23] MEDS: Docusate 100mg cap ORAL SCH ×3 (09:26→17:59)
[2019-02-23] MEDS: Tamsulosin 0.4mg cap ORAL SCH ×2 (09:26→17:59)
[2019-02-23] MEDS: Aspirin Baby 81mg ORAL SCH (09:26)
--- NOTE | 2019-02-23 10:20 | NUR ---
NURSE NOTES: Transferred pt. to 4E room 418-1 and gave bedside report to Michael SANTIAGO. Pt. remain stable.
--- NOTE | 2019-02-23 10:37 | NUR ---
NURSE NOTES: Received pt from Sanket FRANK RN, pt was alert x 4 , resting comfortably. call light w/in reach.
[2019-02-23 12:00] VITALS: BP 151/72
--- NOTE | 2019-02-23 15:58 | Internal Med Progress Note ---
Subjective Date of Service: Feb 23, 2019 Physician Name Omero Champagne Attending Physician Oscar Alarcon MD Current Medications Medications (Trade) Dose Ordered Sig/Rand Route PRN Reason Start Time Stop Time Status Last Admin Dose Admin Acetaminophen (Tylenol) 650 mg Q4H PRN ORAL fever (temp>100.5F) 02/23/19 13:15 03/23/19 21:14 Amlodipine Besylate (Norvasc) 5 mg DAILY ORAL 02/24/19 09:00 03/24/19 08:59 Aspirin (ASA) 81 mg DAILY ORAL 02/24/19 09:00 03/24/19 11:44 Clonidine HCl (Catapres Tab) 0.1 mg Q4H PRN ORAL For High Blood Pressure 02/23/19 12:00 03/24/19 03:59 Dextrose (Dextrose 50%) 25 ml Q30M PRN IV Hypoglycemia 02/23/19 10:45 03/23/19 21:14 Dextrose (Dextrose 50%) 50 ml Q30M PRN IV Hypoglycemia 02/23/19 10:45 03/23/19 21:14 Docusate Sodium (Colace) 100 mg THREE TIMES A DAY ORAL 02/23/19 13:00 03/24/19 12:59 02/23/19 13:09 Heparin Sodium (Porcine) (Heparin 5000 units/ml) 5,000 units EVERY 12 HOURS SUBQ 02/23/19 21:00 03/24/19 08:59 Pantoprazole (Protonix) 40 mg EVERY 12 HOURS ORAL 02/23/19 21:00 03/24/19 20:59 Polyethylene Glycol (Miralax) 17 gm HSPRN PRN ORAL Constipation 02/23/19 21:15 03/23/19 21:14 Sevelamer Carbonate (Renvela) 1,600 mg THREE TIMES A DAY ORAL 02/23/19 13:00 03/24/19 08:59 02/23/19 13:09 Tamsulosin HCl (Flomax) 0.4 mg BID ORAL 02/23/19 18:00 03/24/19 08:59 Zolpidem Tartrate (Ambien) 5 mg HSPRN PRN ORAL Insomnia 02/23/19 21:15 02/28/19 21:14 Allergies: Coded Allergies: No Known Allergies (Unverified , 02/21/19) ROS Limited/Unobtainable: No Constitutional: Reports: no symptoms HEENT: Reports: no symptoms Cardiovascular: Reports: no symptoms Respiratory: Reports: no symptoms Gastrointestinal/Abdominal: Reports: no symptoms Genitourinary: Reports: no symptoms Neurologic/Psychiatric: Reports: no symptoms Subjective 83 YO M admitted with altered mental status. Now hypoglycemia and acute renal failure. Cover for Int Prosper-DR Alarcon. Objective Last Vital Signs Date Time Temp Pulse Resp B/P (MAP) Pulse Ox O2 Delivery O2 Flow Rate FiO2 02/23/19 12:00 97.8 57 18 151/72 (98) 99 02/23/19 08:00 Room Air Laboratory Tests Test 02/23/19 07:48 White Blood Count 4.4 K/UL (4.8-10.8) L Red Blood Count 3.65 M/UL (4.70-6.10) L Hemoglobin 10.3 G/DL (14.2-18.0) L Hematocrit 32.8 % (42.0-52.0) L Mean Corpuscular Volume 90 FL (80-99) Mean Corpuscular Hemoglobin 28.1 PG (27.0-31.0) Mean Corpuscular Hemoglobin Concent 31.3 G/DL (32.0-36.0) L Red Cell Distribution Width 16.0 % (11.6-14.8) H Platelet Count 236 K/UL (150-450) Mean Platelet Volume 6.0 FL (6.5-10.1) L Neutrophils (%) (Auto) 43.5 % (45.0-75.0) L Lymphocytes (%) (Auto) 42.6 % (20.0-45.0) Monocytes (%) (Auto) 8.5 % (1.0-10.0) Eosinophils (%) (Auto) 3.3 % (0.0-3.0) H Basophils (%) (Auto) 2.2 % (0.0-2.0) H Erythrocyte Sedimentation Rate 46 MM/HR (0-20) H Sodium Level 140 MMOL/L (136-145) Potassium Level 4.9 MMOL/L (3.5-5.1) Chloride Level 104 MMOL/L (98-107) Carbon Dioxide Level 23 MMOL/L (21-32) Anion Gap 14 mmol/L (5-15) Blood Urea Nitrogen 98 mg/dL (7-18) H Creatinine 7.7 MG/DL (0.55-1.30) H Estimat Glomerular Filtration Rate mL/min (>60) Glucose Level 120 MG/DL (74-106) H Calcium Level 6.5 MG/DL (8.5-10.1) L Phosphorus Level 6.5 MG/DL (2.5-4.9) H Magnesium Level 1.5 MG/DL (1.8-2.4) L Total Bilirubin 0.4 MG/DL (0.2-1.0) Aspartate Amino Transf (AST/SGOT) 18 U/L (15-37) Alanine Aminotransferase (ALT/SGPT) 12 U/L (12-78) Alkaline Phosphatase 97 U/L (46-116) C-Reactive Protein, Quantitative < 0.4 mg/dL (0.00-0.90) Total Protein 7.1 G/DL (6.4-8.2) Albumin 3.3 G/DL (3.4-5.0) L Globulin 3.8 g/dL Albumin/Globulin Ratio 0.9 (1.0-2.7) L Microbiology Date/Time Source Procedure Growth Status 02/21/19 18:10 Blood Blood Culture - Preliminary Resulted 02/21/19 18:00 Blood Blood Culture - Preliminary NO GROWTH AFTER 24 HOURS Resulted Intake and Output 02/22/19 02/23/19 18:59 06:59 Intake Total 970 ml 840 ml Output Total 650 ml Balance 970 ml 190 ml Intake Oral 720 ml 240 ml IV Total 250 ml 600 ml Output Urine Total 650 ml # Voids 4 # Bowel Movements 3 Objective PHYSICAL EXAMINATION: GENERAL: The patient is awake, responsive. No acute distress. HEAD AND NECK: Pupils are equal and reactive to light. Extraocular movements intact. Neck was supple. No JVD. LUNGS: Clear. No wheeze or rales. HEART: S1, S2. Distant heart sounds. No murmur or gallops. ABDOMEN: Soft, nondistended, nontender. Positive bowel sounds. EXTREMITIES: No cyanosis or clubbing. +2 ankle edema NEUROLOGIC: Cranial nerves II through XII grossly intact. Motor is 5/5 in all extremities. Gait is intact. RECTAL: Refused and deferred. GENITOURINARY: Refused and deferred. PSYCHIATRIC: Mood and affect is intact. Assessment/Plan Assessment/Plan ASSESSMENT: 1. Altered mental status, most likely secondary to the toxic metabolic encephalopathy as a result of hypoglycemia. 2. End stage renal disease 3. Hypoglycemia. 4. Diabetes type 2, uncontrolled. 5. Hypertension. 6. Dyslipidemia. 7. Bilateral renal calculi. PLAN: 1. Med/surg 2. We will monitor blood glucose level closely. 3. Follow up with the Nephrology consultation with Dr. Bonds. 4. Code status is Full Code. 5. Resume home medications. Hold off on diabetes medication. 6. Gentle IV hydration. 7. Discussed with the family member who is enquiring to transfer the patient to [facility] where the patient's regular doctors are. We will try to transfer the patient once the bed available. Contacted transfer center. 8. DVT prophylaxis. Heparin subcutaneous. Omero Champagne MD Feb 23, 2019 15:58
[2019-02-23 16:00] VITALS: BP 126/65
--- NOTE | 2019-02-23 19:56 | NUR ---
HAND-OFF: Report given to PAMELA Ramirez, Pt is stable condition.
[2019-02-23 20:00] VITALS: BP 163/82
[2019-02-23] MEDS ORDERED: Zolpidem 5mg tab ORAL PRN (21:15)
[2019-02-23] MEDS ORDERED: Miralax 17gm pkt ORAL PRN (21:15)
[2019-02-24] VITALS: BP 126/64
[2019-02-24 04:00] VITALS: BP 138/62
--- NOTE | 2019-02-24 06:56 | NUR ---
AWAKE,ALERT.UP AD BALDEMAR.NO C/O AT THIS TIME.ACCUCHECK THIS AM-101,NO COVERAGE,RESTED FAIRLY
--- NOTE | 2019-02-24 06:58 | NUR ---
HAND-OFF: Report given to PAMELA TURNER.
--- NOTE | 2019-02-24 07:00 | NUR ---
NURSE NOTES: Received report from PAMELA Toure. Pt dressed, ambulatory, asking about being discharged, discussed plan of care with pt, RN will contact Dr. Bonds for clearance and notify primary if clearance is given. No c/o pain, no apparent distress noted, bed in lowest position, call light within reach. Addendum: 02/24/19 at 0857 by MILANA MORA RN NURSE NOTES: Rn spoke with Dr. Bonds, Dr. Bonds cleared pt for discharge. Addendum: 02/24/19 at 0858 by MILANA MORA RN NURSE NOTES: RN left message for Dr. Champagne regarding DC order
[2019-02-24 07:24] LABS: BASOPHILS % (AUTO) 1.9 % (0.0-2.0); EOSINOPHILS % (AUTO) 3.2 % (0.0-3.0); HEMATOCRIT 31.9 % (42.0-52.0); HEMOGLOBIN 9.9 G/DL (14.2-18.0); LYMPHOCYTES % (AUTO) 41.3 % (20.0-45.0); MEAN CORPUSCULAR VOLUME 89 FL (80-99); NEUTROPHILS % (AUTO) 44.6 % (45.0-75.0); PLATELET COUNT 203 K/UL (150-450); RED BLOOD COUNT 3.57 M/UL (4.70-6.10); RED CELL DISTRIBUTION WIDTH 15.7 % (11.6-14.8); WHITE BLOOD COUNT 4.3 K/UL (4.8-10.8)
[2019-02-24 07:43] LABS: ALANINE AMINOTRANSFERASE 12 U/L (12-78); ALBUMIN 3.4 G/DL (3.4-5.0); ALBUMIN/GLOBULIN RATIO 0.9 (1.0-2.7); ALKALINE PHOSPHATASE 95 U/L (46-116); ANION GAP 16 mmol/L (5-15); ASPARTATE AMINO TRANSFERASE 18 U/L (15-37); BILIRUBIN,TOTAL 0.3 MG/DL (0.2-1.0); BLOOD UREA NITROGEN 101 mg/dL (7-18); CALCIUM 6.8 MG/DL (8.5-10.1); CARBON DIOXIDE 18 MMOL/L (21-32); CHLORIDE 107 MMOL/L (98-107); SODIUM 141 MMOL/L (136-145)
[2019-02-24 08:00] VITALS: BP 137/62
[2019-02-24 08:32] VITALS: BP 137/62
[2019-02-24] MEDS: Docusate 100mg cap ORAL SCH (08:32)
[2019-02-24] MEDS: Tamsulosin 0.4mg cap ORAL SCH (08:32)
[2019-02-24] MEDS: Heparin 5000 units/ml inj SUBQ SCH (08:33)
[2019-02-24] MEDS ORDERED: Aspirin Baby 81mg ORAL SCH (09:00)
--- NOTE | 2019-02-24 09:19 | Nephrology Progress Note ---
Assessment/Plan Problem List: (1) Acute metabolic encephalopathy (2) Chronic renal failure Assessment: ESRD (3) HTN (hypertension) (4) Hypoglycemia (5) Diabetes mellitus Assessment ESRD Superimposed dehydration h/o HTN h/o DM h/o Prostate disease Plan todays full chemistries reviewed Renal diet 2D echo Left ventricular ejection fraction estimated to be 65 %. Mild left ventricular hypertrophy. [facility] Subjective ROS Limited/Unobtainable: No Constitutional: Reports: other - dressed up to leave ! Objective Objective Last 24 Hour Vital Signs Date Time Temp Pulse Resp B/P (MAP) Pulse Ox O2 Delivery O2 Flow Rate FiO2 02/24/19 08:38 Room Air 02/24/19 08:32 69 137/62 02/24/19 08:00 98.4 69 20 137/62 (87) 97 02/24/19 04:00 98.8 62 18 138/62 (87) 98 02/24/19 00:00 98.1 63 16 126/64 (84) 99 02/23/19 21:40 163/82 02/23/19 21:00 Room Air 02/23/19 20:00 99.0 63 16 163/82 (109) 100 02/23/19 16:00 98.0 61 18 126/65 (85) 99 02/23/19 12:00 97.8 57 18 151/72 (98) 99 02/23/19 09:27 60 133/70 Intake and Output 02/23/19 02/24/19 19:00 07:00 Intake Total 560 ml 200 ml Output Total 150 ml Balance 410 ml 200 ml Intake Oral 560 ml 200 ml Output Urine Total 150 ml # Voids 5 2 Current Medications Medications (Trade) Dose Ordered Sig/Rand Route PRN Reason Start Time Stop Time Status Last Admin Dose Admin Acetaminophen (Tylenol) 650 mg Q4H PRN ORAL fever (temp>100.5F) 02/23/19 13:15 03/23/19 21:14 Amlodipine Besylate (Norvasc) 5 mg DAILY ORAL 02/24/19 09:00 03/24/19 08:59 02/24/19 08:32 Aspirin (ASA) 81 mg DAILY ORAL 02/24/19 09:00 03/24/19 11:44 02/24/19 08:32 Clonidine HCl (Catapres Tab) 0.1 mg Q4H PRN ORAL For High Blood Pressure 02/23/19 12:00 03/24/19 03:59 02/23/19 21:40 Dextrose (Dextrose 50%) 25 ml Q30M PRN IV Hypoglycemia 02/23/19 10:45 03/23/19 21:14 Dextrose (Dextrose 50%) 50 ml Q30M PRN IV Hypoglycemia 02/23/19 10:45 03/23/19 21:14 Docusate Sodium (Colace) 100 mg THREE TIMES A DAY ORAL 02/23/19 13:00 03/24/19 12:59 02/24/19 08:32 Heparin Sodium (Porcine) (Heparin 5000 units/ml) 5,000 units EVERY 12 HOURS SUBQ 02/23/19 21:00 03/24/19 08:59 02/23/19 21:38 Pantoprazole (Protonix) 40 mg EVERY 12 HOURS ORAL 02/23/19 21:00 03/24/19 20:59 02/24/19 08:32 Polyethylene Glycol (Miralax) 17 gm HSPRN PRN ORAL Constipation 02/23/19 21:15 03/23/19 21:14 Sevelamer Carbonate (Renvela) 1,600 mg THREE TIMES A DAY ORAL 02/23/19 13:00 03/24/19 08:59 02/24/19 08:33 Tamsulosin HCl (Flomax) 0.4 mg BID ORAL 02/23/19 18:00 03/24/19 08:59 02/24/19 08:32 Zolpidem Tartrate (Ambien) 5 mg HSPRN PRN ORAL Insomnia 02/23/19 21:15 02/28/19 21:14 Laboratory Tests 02/24/19 06:50: White Blood Count 4.3L, Red Blood Count 3.57L, Hemoglobin 9.9L, Hematocrit 31.9L , Mean Corpuscular Volume 89, Mean Corpuscular Hemoglobin 27.8, Mean Corpuscular Hemoglobin Concent 31.1L, Red Cell Distribution Width 15.7H, Platelet Count 203, Mean Platelet Volume 6.0L, Neutrophils (%) (Auto) 44.6L, Lymphocytes (%) (Auto) 41.3, Monocytes (%) (Auto) 9.0, Eosinophils (%) (Auto) 3.2H, Basophils (%) (Auto) 1.9, Sodium Level 141, Potassium Level 5.0, Chloride Level 107, Carbon Dioxide Level 18L, Anion Gap 16H, Blood Urea Nitrogen 101H, Creatinine 8.0H, Estimat Glomerular Filtration Rate , Glucose Level 102, Calcium Level 6.8L, Total Bilirubin 0.3, Aspartate Amino Transf (AST/SGOT) 18, Alanine Aminotransferase (ALT/SGPT) 12, Alkaline Phosphatase 95, Total Protein 7.3, Albumin 3.4, Globulin 3.9, Albumin/Globulin Ratio 0.9L Height (Feet): 5 Height (Inches): 11.00 Weight (Pounds): 166 General Appearance: no apparent distress Cardiovascular: normal rate Respiratory/Chest: lungs clear Abdomen: soft Objective no change Manuel Bonds MD Feb 24, 2019 09:19
[2019-02-24] MEDS ORDERED: Tubing IV Secondary IV ONE (10:22)
--- NOTE | 2019-02-24 10:45 | NUR ---
NURSE NOTES: Pt discharged home with all belongings, Pt ambulatory, A/Ox4, taken by taxi with voucher in hand, IV removed intact, ID band removed, pt stable for discharge.
--- NOTE | 2019-02-24 12:14 | Discharge Summary ---
Discharge Summary Discharge Summary _ DATE OF ADMISSION: 02/21/2019 DATE OF DISCHARGE: 02/24/2019 DISCHARGED BY: Dr. Alarcon REASON FOR ADMISSION: 83 years old male with past medical history of diabetes mellitus type 2, hypertension, dyslipidemia, chronic kidney disease stage 4 -5 , who gets his [facility] care at the [facility] . presented to [facility] emergency room via EMS after he was found to have altered mental status. Paramedics noted blood glucose level 40. Upon evaluation patient had elevated blood pressure 172/84. Laboratory work-up revealed evidence of renal failure with BUN 103, creatinine 7.7. No leukocytosis ; WBC 4.6 ,hemoglobin 11.5, hematocrit 27.1. Urinalysis revealed +3 protein, +2 blood. EKG revealed normal sinus rhythm, no acute ischemic changes. In the ED hypoglycemia was treated with IV dextrose , and blood sugar subsequently improved. Patient was admitted to the hospital with altered mental status , most likely secondary to hypoglycemia , as well as acute kidney injury on chronic renal failure, elevated blood pressure. CONSULTANTS: pulmonary Dr. Estrella diamond selector Dr. Bonds [facility]: Patient admitted to the hospital . Anti-glycemic were on hold. Renal ultrasound revealed medical renal disease. Bilateral renal cysts. Bilateral nonobstructive stones. Ophthalmic Tech followed. Prior diamond selector, patient had a chronic renal failure along with superimposed dehydration. Renal diet provided. Renal parameters and electrolytes were closely monitored. Hyperkalemia was corrected. Nephrotoxins were avoided. Patient under continuous care at the [facility] facility . DVT prophylaxis with heparin provided Home medication resumed. Hemoglobin A1c 6.3 at goal. Blood sugar was closely monitored and stabilized. Blood pressure was managed with calcium channel caleb and clonidine as needed. Blood pressure stabilized with current regimen. Antiplatelet therapy with aspirin continued. Lipid panel was stable. Echocardiogram revealed preserved ejection fraction 65% with mild left ventricular hypertrophy. No evidence of wall motion abnormality. Right ventricular systolic pressure of 9. Patient clinically stabilized. Patient was referred to follow-up as outpatient with [facility] where he receives his usual routine continuous care. FINAL DIAGNOSES: Acute metabolic encephalopathy as a result of hypoglycemia Acute kidney injury on chronic renal failure stage 4 to 5 Hypoglycemia Diabetes mellitus type 2 Hypertension Dyslipidemia Bilateral renal calculi , nonobstructive DISCHARGE MEDICATIONS: See Medication Reconciliation list. DISCHARGE INSTRUCTIONS: Patient was discharged home. Patient to follow-up as outpatient with the [facility] services as before to ensure continuation of care and further management. I have been assigned to dictate discharge summary for this account. I was not involved in the patient's management. Leticia Alex NP Feb 24, 2019 12:14
--- NOTE | 2019-02-26 13:22 | NUR ---
*-* INSURANCE *-* ALL CLINICALS AND REVIEWS HAVE BEEN FAXED TO: [facility] ADMISSION REPORTED TO [facility] @ [phone] COLLIN# [id number] / PENDING [facility]: [place] P- [phone] - [facility] DEPT F- [phone]..............REVIEW/CLINICAL
== END 2019-02-24 10:46 | disposition home or self-care (01) | DRG 682 ==
LOC: EDBD 17:36 → EMR 18:50 → 2W 19:00 → EDBEDREQ 19:41 → 2W 20:41 → 4E 02-23 10:20
DX: N17.9 Acute kidney failure, unspecified (principal); G93.41 Metabolic encephalopathy; I12.9 Hypertensive chronic kidney disease with stage 1 through stage 4 chronic kidney disease, or unspecified chronic kidney disease; E11.22 Type 2 diabetes mellitus with diabetic chronic kidney disease; E11.649 Type 2 diabetes mellitus with hypoglycemia without coma; N18.5 Chronic kidney disease, stage 5; E78.5 Hyperlipidemia, unspecified; E86.0 Dehydration; N20.0 Calculus of kidney; Z79.84 Long term (current) use of oral hypoglycemic drugs; Z79.82 Long term (current) use of aspirin
CPT/HCPCS: 36415; 76770; 80053; 80061; 81001; 81003; 82043; 82550; 82962; 83036; 83735; 83935; 84100; 84300; 84443; 84550; 85025; 85651; 86140; 87040; 87181; 89050; 93005; 93306; 99285; J1815